=== PATIENT | female | born 1990 | race African-American/Black ===

== ENCOUNTER 2020-06-23 09:33 | Outpatient (CLI) | payer BC, SELFPAY ==
[2020-06-23 10:20] LABS: Glucose Fasting 106 mg/dL
[2020-06-23 12:31] LABS: Glucose 1 Hour 245 mg/dL
[2020-06-23 13:22] LABS: Glucose 2 Hour 204 mg/dL
== END 2020-06-23 09:34 | disposition home or self-care (01) ==
PROVIDERS: Visit Provider Obstetrics & Gynecology
DX: R73.09 Other abnormal glucose (principal)
CPT/HCPCS: 36415; 82951

== ENCOUNTER 2020-09-19 14:41 | Observation (INO) | payer OTHER, SELFPAY ==
[2020-09-19] MEDS: MAGNESIUM HYDROXIDE SUSP 30 ML UDC PO (15:34)
--- NOTE | 2020-09-19 15:40 | OBADM ---
This patient, Iliana Soto, admitted to the OB room [facility] for observation. Patient/family oriented to hospital policies and general routines including ID bracelet, bed and alarms, visiting hours, pain management, procedures, bathroom and other care routines, personal items, smoking policy, room service/diet, and visiting hours. Patient/Family are encouraged to report perceived risks to care and to ask questions if they do not understand what they are told or what they should do.
[2020-09-19 15:41] LABS: Add Urine Microscopic? YES; Amorphous Sediment Urine Few; Appearance Urine Clear (Clear); Bacteria Urine Trace /hpf; Bilirubin Urine Negative (Negative); Blood Urine Negative (Negative); Color Urine Yellow (Yellow); Glucose Urine UA 3+ mg/dL (Negative); Ketones Urine Negative (Negative); Leukocyte Esterase Ur Trace LEU/UL (NEGATIVE); Mucus Urine Rare /lpf; Nitrate Urine Negative (Negative); Protein Urine Negative (Negative); RBC Urine 0-2 /hpf (0-2); Squamous Epithelial Cell Urine Moderate /hpf (Few); Urobilinogen Urine Negative mg/dL (<2.0); WBC Urine 0-3 /hpf (0-3)
[2020-09-19 15:45] VITALS: BP 103/56; PULSE 115
[2020-09-19 16:00] VITALS: BP 95/59; PULSE 113
[2020-09-19 16:01] LABS: Fetal Fibronectin Negative
--- NOTE | 2020-09-19 16:15 | PC.NURSE ---
1600- Spoke with Niki Farr CNM, Patient states she feels that her vagina is swollen and that when she stands, it feels like it is bulging out. SVE a fingertip, FFN negative. Milk of Magnesia given. patient to be discharged to home.
--- NOTE | 2020-10-16 08:21 | PM.OBTRLD ---
OB - Triage/Final Diagnosis Visit Information Comments/Additional reasons for admission: I have assessed the risk for this patient, Iliana Guptar, and determined that she would benefit from observation care. Evaluation Laboratory results: Laboratory Tests 09/19/20 09/19/20 15:11 15:24 Urine Color Yellow Urine Appearance Clear Urine pH 6.0 Ur Specific [place] 1.010 Urine Protein Negative Urine Glucose (UA) 3+ H Urine Ketones Negative Ur Blood (Man) Negative Urine Nitrate Negative Urine Bilirubin Negative Urine Urobilinogen Negative Ur Leukocyte Esterase Trace H Urine RBC 0-2 Urine WBC 0-3 Ur Squamous Epith Cells Moderate H Amorphous Sediment Few H Urine Bacteria Trace Urine Mucus Rare Fibronectin Negative Final Diagnosis (1) Swelling of vagina: Code(s): N89.9 - Noninflammatory disorder of vagina, unspecified Status: Acute
== END 2020-09-19 16:14 | disposition home or self-care (01) ==
PROVIDERS: Advanced Practice Midwife; Admitting Provider Obstetrics & Gynecology; Visit Provider Obstetrics & Gynecology
DX: O99.891 Other specified diseases and conditions complicating pregnancy (principal); N89.8 Other specified noninflammatory disorders of vagina; Z3A.00 Weeks of gestation of pregnancy not specified
CPT/HCPCS: 81001; 82731; 87086; A9270; G0378; G0379

== ENCOUNTER 2020-11-23 21:25 | Outpatient (RCR) | payer OTHER, SELFPAY ==
[2020-11-23 22:01] VITALS: BP 121/75; PULSE 100
== END 2021-02-21 23:59 | disposition home or self-care (01) ==
LOC: ANHOBOP 21:25
PROVIDERS: Visit Provider Obstetrics & Gynecology
DX: O36.8130 Decreased fetal movements, third trimester, not applicable or unspecified (principal); Z3A.36 36 weeks gestation of pregnancy
CPT/HCPCS: 59025

== ENCOUNTER 2020-11-25 17:26 | Inpatient (IN) | payer OTHER, SELFPAY ==
[2020-11-25] VITALS (56 sets, daily range): BP systolic 92–137; BP diastolic 47–86; PULSE 50–248; TEMP 36.6–37.2; O2SAT 78–100; BMI 27.4
--- NOTE | 2020-11-25 18:58 | LDADM ---
This patient, Iliana Soto, was admitted to Labor/Delivery/Recovery 106 on 11/25/20 at 17:26. Plans for labor, pain management and were discussed with patient. Patient/family oriented to hospital policies and general routines including ID bracelet, bed and alarms, visiting hours, pain management, procedures, bathroom and other care routines, personal items, smoking policy, room service/diet and guest tray routines, infant security routines, and visiting hours. Patient/Family are encouraged to report perceived risks to care and to ask questions if they do not understand what they are told or what they should do. See OBIX for further documentation.
[2020-11-25 20:56] LABS: Basophils Percent Auto 0.4 % (0.2-1.2); Eosinophils Percent Auto 0.2 % (0-4.4); Hematocrit 31.2 % (37.0-47.0); Hemoglobin 9.7 g/dL (12.0-15.0); Immature Granulocyte Absolute 0.05 K/mm3 (0.00-0.031); Immature Granulocyte Percent A 0.5 % (0-0.5); Lymphocytes Absolute Auto 2.77 K/mm3 (0.9-3.2); Lymphocytes Percent Auto 25.6 % (18.3-44.2); Mean Corpuscular HGB Conc 31.1 g/dl (32-36); Mean Corpuscular Hemoglobin 25.8 pg (26-34); Mean Platelet Volume 11.5 fl (7.4-10.4); Monocytes Absolute Auto 0.8 K/mm3 (0.1-0.6); Monocytes Percent Auto 7.6 % (2.6-8.5); Neutrophils Absolute Auto 7.1 K/mm3 (1.3-6.7); Neutrophils Percent Auto 65.7 % (45.5-73.1); Platelet Count Result 276 k/mm3 (150-375); Red Blood Count 3.76 M/mm3 (4.2-5.4); Red Cell Distribution Width 15.9 % (11.5-14.5); White Blood Count 10.8 K/mm3 (4.5-10.0)
[2020-11-25] MEDS: LACTATED RINGERS 1,000 ML 125 ML IV CONT ×2 (21:20→22:45)
[2020-11-25 21:22] LABS: Glucose Point of Care 66 mg/dl (65-105)
--- NOTE | 2020-11-25 21:37 | WPDANESEPP ---
Anes - Eval Pre Procedure Procedure: labor epidural Date/Time: 11/25/20 21:37 Surgeon: regina Pre Op Diagnosis: contractions Patient Data Age: 30 Gender: F Height: 1.68 m Weight: 77.2 kg Last Vital Signs Temp 37.2 C 11/25/20 21:06 Pulse 90 11/25/20 21:31 BP 119/71 11/25/20 21:31 Allergies Allergy/AdvReac Type Severity Reaction Status Date / Time No Known Allergies Allergy Verified 11/21/20 13:42 Home Medications Medication Instructions Recorded Confirmed Type Classic 1 tablet PO DAILY 09/19/20 09/19/20 History Humulin N NPH U-100 Insulin 10 unit SUBCUT HS 09/19/20 09/19/20 History calcium carbonate [Tums] 300 mg PO BID 09/19/20 09/19/20 History insulin NPH isoph U-100 human 8 unit SUBCUT QAM 11/21/20 11/21/20 History [Humulin N NPH U-100 Insulin] Laboratory Tests 11/25/20 11/25/20 11/25/20 18:33 18:33 21:19 WBC 10.8 K/mm3 H K/mm3 (4.5-10.0) RBC 3.76 M/mm3 L M/mm3 (4.2-5.4) Hgb 9.7 g/dL L g/dL (12.0-15.0) Hct 31.2 % L % (37.0-47.0) MCV 83.0 fl fl (80-100) MCH 25.8 pg L pg (26-34) MCHC 31.1 g/dl L g/dl (32-36) RDW 15.9 % H % (11.5-14.5) Plt Count 276 k/mm3 k/mm3 (150-375) MPV 11.5 fl H fl (7.4-10.4) Immature Gran % (Auto) 0.5 % % (0-0.5) Neut % (Auto) 65.7 % % (45.5-73.1) Lymph % (Auto) 25.6 % % (18.3-44.2) [place] % (Auto) 7.6 % % (2.6-8.5) Eos % (Auto) 0.2 % % (0-4.4) Baso % (Auto) 0.4 % % (0.2-1.2) Lymph # (Auto) 2.77 K/mm3 K/mm3 (0.9-3.2) [place] # (Auto) 0.8 K/mm3 H K/mm3 (0.1-0.6) Eos # (Auto) 0.0 K/mm3 K/mm3 (0-0.3) Baso # (Auto) 0.0 K/mm3 K/mm3 (0.0-0.1) Abs Immat Gran (auto) 0.05 K/mm3 H K/mm3 (0.00-0.031) Absolute Neuts (auto) 7.1 K/mm3 H K/mm3 (1.3-6.7) Absolute Nucleated RBC 0.0 K/mm3 K/mm3 (0.0-0.012) Nucleated RBC % 0.0 % % (0.0-0.2) POC Capillary Glucose 66 mg/dl mg/dl (65-105) RPR Pending Patient hx anesthesia problems: none Family hx anesthesia problems: none Results Review: All pre-operative results and documents have been reviewed as part of the pre-operative evaluation. [facility] Family History Family History (Updated 11/21/20 @ 13:46 by Estee Hanson RN) Grandparent Asthma Borderline diabetes Mother H/O thyroidectomy Social History Social History Smoking status: Never smoker Substance use: never Spiritual care concerns: No Exam Day of Procedure 11/25/20 21:37
[2020-11-26] VITALS (62 sets, daily range): BP systolic 96–130; BP diastolic 58–94; PULSE 31–123; RESP 16–18; TEMP 36.5–36.8; O2SAT 73–100
[2020-11-26 00:38] LABS: Glucose Point of Care 65 mg/dl (65-105)
[2020-11-26] MEDS: OXYTOCIN 30 UNITS/NS 500 ML 30 UNITS/500 ML BAG 999 UNITS IV CONT (02:38)
--- NOTE | 2020-11-26 02:44 | WPDHPUPDATE1 ---
History and Physical Update Update Date/Time: 11/26/20 02:44 Term - labor History and Physical has been reviewed, including an updated exam of the patient. There are NO changes in the patient's condition. Risks, benefits, and alternatives have been discussed and questions answered. Patient agrees to proceed with procedure.
--- NOTE | 2020-11-26 02:45 | P.PCNOB_ITS ---
OB - Delivery Note Procedure Delivery date: 11/26/20 events: Gestational Diabetes Intrapartal events: None Induction method: none Delivery monitor: external FHT and external uterine Route of delivery: Laceration Description: None Specimen: No Quantitative Blood Loss (ml): 200 [place] Baby Date of : 11/26/20 Time of : 02:33 Weeks of gestation at delivery: 37 gender: Male Weight (pounds): 7 Weight (ounces): 13 presentation: vertex score one minute: 8 score five minutes: 9
[2020-11-26] MEDS: OXYTOCIN 30 UNITS/NS 500 ML 30 UNITS/500 ML BAG 125 UNITS IV CONT (03:30)
[2020-11-26] MEDS: IBUPROFEN 600 MG TABLET PO ×3 (06:55→23:04)
[2020-11-26 08:21] LABS: Rapid Plasma Reagin Non-Reactive (NonReactive)
[2020-11-26] MEDS: POLYSACCHARIDE IRON COMPLEX 150 MG CAPSULE PO ×2 (11:24→18:07)
[2020-11-26] MEDS: MULTIVIT/MIN/PREN/FOL AC/IRON TABLET 1 TAB PO (11:25)
[2020-11-26] MEDS: DOCUSATE SODIUM 100 MG CAPSULE PO ×2 (11:25→18:07)
--- NOTE | 2020-11-26 16:02 | PC.NURSE ---
1400 Breast feeding note; nurse has worked with mother since 0830, with regular attempts to get to breast feed. Baby very sleepy. Attempt at 0830, 1000, 1200 and 1330. baby made no effort to root or to latch. Reviewed with mother positioning, alignment, use of c-hold and nose to nipple latch on technique; mother shown ways to try to wake . Baby's blood sugars have remained stable. Because of 6 hour interval since last feeding, and baby 37 weeks gestation, mother was to bottle feed infant. Nurse had to do the bottle feeding as baby very sleepy and would not take bottle for mother. Nurse had to work to get to suck swallow. Fair suck, and disorganized, and baby sleepy. Mother then set up with breast pump; she was shown set-up, reviewed care of equipment and assessment for correct flange size of 24mm. Mother will start feeding plan of attempt, pump and bottle feeding at each feeding. She was encouraged to call for nurse assistance at each feeding to assist and evaluate at breast. Mother seemed attentive; however, flat affect today, but also know mother very tired and she has not had good sleep since delivery.
[2020-11-27 04:49] LABS: Hematocrit 29.3 % (37.0-47.0); Hemoglobin 9.2 g/dL (12.0-15.0)
--- NOTE | 2020-11-27 07:50 | PM.OBPNVD ---
OB - PN: Subj Subjective Date/time seen: 11/27/20 07:50 Patient comments: no complaints, pain well controlled, incisional pain, tolerating diet and flatus present OB - PN: Obj Data Labs CBC & Chem 7: 11/27/20 03:50 Labs: Laboratory Results - last 24 hr 11/25/20 11/27/20 18:33 03:50 Hgb 9.2 L Hct 29.3 L RPR Non-reactive OB - PN A/P Plan day: 1 Plan: routine care Comments: No problems, routine care Time Spent With Patient Time: Total time spent is greater than 50% in coordination of care (as documented) at patient's floor/unit and/or counseling patient: Exam Const: General: comfortable, no acute distress and alert Resp: Effort & Inspection: normal respiratory effort Auscultation: no crackles, no rales and no rhonchi Cardio: Rate: regular rate Heart sounds: no click, no murmurs and no rubs GI: Inspection: non-distended GI Palp: No Tenderness to palpation present (GI) Auscultation: normal bowel sounds Other: Incision - CDI Extrem: General: normal to inspection, no pedal edema and no calf tenderness
--- NOTE | 2020-11-27 07:50 | PM.OBDSVD ---
DS: Admitting Diagnosis Discharge Date 11/27/2020 Admitting Diagnosis Labor DS: Discharge Diagnosis Discharge Diagnosis (1) Active labor: Status: Acute OB - DS: Summary OB Procedures : None OB Procedures Intrapartum: Spontaneous Vag Delivery OB Procedures: : None Peripartum Data Delivery Method: Natural Vaginal Laceration Description: None complications: none Status at Discharge Functional status at discharge: independent ambulation Time Spent with Patient Time attestation: Total time spent providing and/or coordinating discharge services: DS: Data Data Completed and Pending Labs on day of discharge: Labs from last 24 hours 11/27/20 11/25/20 03:50 18:33 Hgb 9.2 L Hct 29.3 L RPR Non-reactive Discharge Plan Discharge Attending physician on discharge: Duglas Grace Discharging Clinician: Duglas Grace Patient Disposition: Home, Self-Care Activity: pelvic rest Diet: regular Patient Instructions: Antibiotic Form Stand Alone Forms: General Discharge Information Follow-up/Referrals: Duglas Grace MD [Physician] - Discharge Medications: Continued Classic 28 mg iron- 800 mcg Tablet 1 tablet PO DAILY RF: 0 Discontinued calcium carbonate [Tums] 300 mg (750 mg) Tablet,Chewable 300 mg PO BID RF: 0 Humulin N NPH U-100 Insulin 100 unit/mL suspension 10 unit SUBCUT HS RF: 0 Humulin N NPH U-100 Insulin 100 unit/mL Suspension 8 unit SUBCUT QAM RF: 0 Date of admission: 11/25/20 17:26 Primary Care Provider: PHYSICIAN,PROPERTY MANAGEMENT INTERN Admitting Provider: Duglas Grace Attending physician on admission: Duglas Grace Condition: Stable
[2020-11-27 08:00] VITALS: BP 123/78; PULSE 74; RESP 16; TEMP 37.2; O2SAT 100
[2020-11-27] MEDS: MULTIVIT/MIN/PREN/FOL AC/IRON TABLET 1 TAB PO (09:07)
[2020-11-27] MEDS: IBUPROFEN 600 MG TABLET PO (09:07)
[2020-11-27] MEDS: POLYSACCHARIDE IRON COMPLEX 150 MG CAPSULE PO (09:07)
[2020-11-27] MEDS: DOCUSATE SODIUM 100 MG CAPSULE PO (09:07)
--- NOTE | 2020-11-27 09:54 | WPDANLDPN2 ---
Anes-Prog Note L&D Date/Time: 11/27/20 09:54 Comfortable throughout: labor and delivery Neuraxial method: epidural Epidural/Spinal procedure site: clean & non-tender Neuro status: Neuro function grossly intact. Cardiovascular status: normal Respiratory status: normal Airway patency: baseline Mental status: baseline Post-Op hydration status: normal Vital Signs: Last Vital Signs Temp 36.7 C 11/26/20 18:48 Pulse 76 11/26/20 18:48 Resp 16 11/26/20 18:48 BP 128/82 11/26/20 18:48 Pulse Ox 100 11/26/20 11:30 Pain score (VAS): 0 Post-procedural complaints: none Patient feedback: Patient satisfied with anesthetic care.
[2020-11-28 10:09] VITALS: BP 117/72; PULSE 87; RESP 20; TEMP 37.4; O2SAT 100
--- NOTE | 2020-11-29 11:50 | PC.NURSE ---
late entry; on 11-28-2020 at 1045 Pt here for her f/u visit; asked to visit with this patient about breast feeding baby. baby 37 weeks at delivery. Mother desires to breast feed. She reports baby breast feeds at some feedings, and some feedings will not. She started supplementing while in the hospital and continues to supplement. She reports buying a pump but not liking it, and plans to buy a Medela pump today. She was sent home with Medela pump attachments. Mother was instructed to follow the following feeding plan: Attempt to breast feed . If baby breastfeeds let him nurse observing for effective breast feeding, maintained latch and vigorous sucking. Then bottle feed and pump at each feeding. Pain free breast feeding and pumping is the goal. Bottle feed any pumped breast milk available, then give formula amount baby wants. Pump at each feeding. Pt was given the LC's contact phone number, and she was encouraged to call next week and schedule an appointment with her when baby is 38 weeks for more help with latch and breast feeding. Mother stated she would do that. Nurse also reminded mother that breast care information is in the Mother Baby Guide which she received while in the hospital. Mother verbalized understanding of all information share, and the feeding plan written above was written down for her.
== END 2020-11-27 14:14 | disposition home or self-care (01) | DRG 560 ==
LOC: ANHLDR 17:30 → ANHOB2 11-26 06:25
PROVIDERS: Admitting Provider Obstetrics & Gynecology; Visit Provider Obstetrics & Gynecology
DX: O24.429 Gestational diabetes mellitus in childbirth, unspecified control (principal); Z3A.37 37 weeks gestation of pregnancy; Z37.0 Single live birth
CPT/HCPCS: 36415; 82948; 85014; 85018; 85025; 86592; 86850; 86900; 86901; A9270; J2590; J2795; J7120

== ENCOUNTER 2023-06-03 16:53 | Emergency (ER) | payer OTHER, SELFPAY ==
[2023-06-03 17:05] VITALS: BP 132/82; PULSE 98; RESP 16; TEMP 36.6; O2SAT 99
--- NOTE | 2023-06-03 17:34 | ED.DENTAL ---
HPI - Dental/Oral General Chief complaint: Dental/Oral Stated complaint: right side of mouth pain Time Seen by Provider: 06/03/23 17:34 Source: patient Mode of arrival: ambulatory Limitations: no limitations History of Present Illness HPI Narrative: 32-year-old female presents with complaint of pain and swelling to right upper dental. Concern for dental abscess. Called around to several dentists but unable to get appointment for 1 month. Afebrile. No significant facial swelling noted. All systems reviewed and negative except as noted above. Related Data Home Medications Medication Instructions Recorded Confirmed vits no.126-ferrous fum 1 tablet PO DAILY 09/19/20 06/03/23 28 mg iron-folic acid 800 mcg tablet (Classic ) Allergies Allergy/AdvReac Type Severity Reaction Status Date / Time No Known Allergies Allergy Verified 06/03/23 17:02 Review of Systems Review of Systems: CONSTITUTIONAL: Denies fever, chills, or sweats. EYES: Denies visual changes, redness, or discharge. ENT: Denies rhinorrhea, congestion, sore throat, or otalgia. Reports Right upper dental pain. CARDIOVASCULAR: Denies chest pain, palpitations, or edema. RESPIRATORY: Denies cough or dyspnea. GASTROINTESTINAL: Denies abdominal pain, nausea, vomiting, or diarrhea. GENITOURINARY: Denies dysuria or hematuria. SKIN: Denies rash or itching. MUSCULOSKELETAL: Denies back pain, joint pain, or myalgia. NEUROLOGIC: Denies headache, numbness, or weakness. PSYCHIATRIC: Denies anxiety or depression. All other systems reviewed are negative, except as documented in HPI. [facility] Family History Family History (Updated 11/21/20 @ 13:46 by Estee Hanson RN) Grandparent Asthma Borderline diabetes Mother H/O thyroidectomy Social History Social History Smoking status: Never smoker Substance use: never Spiritual care concerns: No Comments At time of signature, agree with nursing past medical, surgical, social and family history. There is no relevant family history pertinent to the presenting complaint. Exam Narrative: GENERAL: This is a well-nourished, well-developed patient, in no apparent distress. HEAD: normocephalic, atraumatic. EYES: PERRL. Sclera clear/white. Vision is grossly intact. EARS: External ears normal NOSE: External nose normal MOUTH: abscess to R side upper gums, tooth 4 broken NECK: Neck supple, non-tender without lymphadenopathy, masses or thyromegaly. CARDIOVASCULAR: Regular rate and rhythm without murmurs, gallops, or rubs. RESPIRATORY: Clear to auscultation. Breath sounds equal bilaterally. No wheezes, rales, or rhonchi. SKIN: warm, Dry, intact with no suspicious lesions or rash, good texture and turgor. NEURO: awake, alert, and oriented to person, place and time. There were no obvious focal neurologic abnormalities. EXTREMITIES: No joint tenderness, effusion, or edema noted. Course Course Level of Care: Express Care Visit Vital Signs Vital signs: Vital Signs Temperature 36.6 C 06/03/23 17:05 Pulse Rate 98 06/03/23 17:05 Respiratory Rate 16 06/03/23 17:05 Blood Pressure 132/82 06/03/23 17:05 Pulse Oximetry 99 06/03/23 17:05 Oxygen Delivery Room Air 06/03/23 17:05 Temperature 36.6 C 06/03/23 17:05 Pulse Rate 98 06/03/23 17:05 Respiratory Rate 16 06/03/23 17:05 Blood Pressure 132/82 06/03/23 17:05 Pulse Oximetry 99 06/03/23 17:05 Oxygen Delivery Room Air 06/03/23 17:05 reviewed MDM - Dental/Oral MDM Narrative Medical decision making narrative: Patient is aware of diagnosis, understands and agrees to treatment plan. Anticipatory guidance given. Patient agrees to follow-up as directed and is aware of reasons to seek care at the emergency department. Portions of this record may have been created with voice recognition software Differential Diagnosis Differential diagnosis: Likely dental caries, toothache and dental
== END 2023-06-03 17:46 | disposition home or self-care (01) ==
PROVIDERS: Emergency Provider Nurse Practitioner Family
DX: K04.7 Periapical abscess without sinus (principal)
CPT/HCPCS: 99213; G0463